=== PATIENT | male | born 1965 | race Caucasian/White ===

== ENCOUNTER 2017-05-14 17:04 | Emergency (ER) | payer OTHER ==
[~2017-05-14] VITALS: Ht 175.3 cm; Wt 66.0 kg
[~2017-05-14 17:04] MED LIST: ALBUAER2 INH; LSN5 PO; MCRK/10 PO; OXYC-88 PO; PRAV20TA PO; WARF1TAB6 PO; ZNTT/150 PO
[2017-05-14 17:06] VITALS: TEMP 36.4; Ht 175.3 cm; Wt 66.0 kg
[2017-05-14] MEDS ORDERED: KETOROLAC TROMETHAMINE 60 MG/2 ML VIAL IM STA (17:23)
[2017-05-14] MEDS ORDERED: DEXAMETHASONE SOD INJ 10 MG/ML VIAL IM ONE (17:30)
--- NOTE | 2017-05-14 19:00 | DIAGNOSTIC IMAGING REPORT ---
LUMBAR SPINE 5 VIEWS HISTORY: low back pain COMPARISON: Lumbar spine MRI 09/26/2015. FINDINGS: There is no fracture. No subluxation. Prior right-sided L5 hemilaminectomy. Mild facet degenerative changes within the lower lumbar spine. Small endplate osteophytes throughout the lumbar spine. Mild disc space narrowing at L1-L2, unchanged. The remaining disc spaces are preserved. IMPRESSION: No fracture or subluxation within the lumbar spine. No change in the mild degenerative changes as described above. Electronically signed by: Bashir Combs M.D. 05/14/2017 6:59 PM Dictated Date/Time: 05/14/2017 6:51 PM
[2017-05-14 19:03] VITALS: BP 120/86; PULSE 73; O2SAT 96
[2017-05-14] MEDS ORDERED: PRED50TA PO (19:14)
[2017-05-14] MEDS ORDERED: CYCL10TA6 PO (19:14)
[2017-05-14] MEDS ORDERED: FLEXERIL HOME PACK 10 MG VIAL PO ONE (19:15)
--- NOTE | 2017-05-14 19:40 | EMERGENCY ROOM VISIT NOTE ---
History First contact with patient: 17:14 Chief Complaint: BACK PAIN Stated Complaint: SEVERE BACK AND LEFT LEG PAIN History of Present Illness The patient is a 51 year old male who presents to the Emergency Room with complaints of left sided low back pain with radiation down his left leg. The patient has a long-standing history of back pain with previous surgery several years ago. He has been having nagging back pain for the past few days and did follow with his primary care physician. The patient was given a prescription of tramadol and MRI was ordered as an outpatient. The patient lives in [facility] and was scheduled to have the MRI today. He states that his pain was so bad that he did not wish to have the MRI, as he would have to lay flat, and instead presents to this department for evaluation. The patient did have a near fall 2 days ago, and states that he twisted, and this exacerbated his symptoms. He does not have numbness or paresthesias. He is not having loss of bowel or bladder control. No fever. He rates his discomfort a 9/10 that worsens with certain ocean. Review of Systems More than 10 systems were reviewed and otherwise negative with the exception of history of present illness. Past Medical/Surgical History Medical Problems: (1) Lumbar radiculopathy, right Family History No pertinent family history Social History Smoking Status: Current Every Day Smoker Alcohol Use: none Drug Use: none Marital Status: single Occupation Status: unemployed Current/Historical Medications Scheduled Cyclobenzaprine Hcl (Flexeril), 10 MG PO TID Hydrochlorothiazide (Hctz), 25 MG PO QAM Lisinopril (Lisinopril), 5 MG PO QAM Potassium Chloride (K-Tabs), 10 MEQ PO QAM Pravastatin (Pravachol ), 20 MG PO HS Prednisone (Prednisone), 50 MG PO DAILY Ranitidine (Zantac), 150 MG PO BID Warfarin Sod (Jantoven), 4 MG PO DAILY Physical Exam Vital Signs Date Time Temp Pulse Resp B/P (MAP) Pulse Ox O2 Delivery O2 Flow Rate FiO2 05/14/17 19:03 73 18 120/86 96 Room Air 05/14/17 17:06 36.4 96 20 123/86 98 Room Air Pain Rating (0-10): 7.0 Physical Exam VITALS: Vitals are noted on the nurse's note and reviewed by myself. Vital signs stable. GENERAL: Well-developed, well-nourished, white male, who is in no acute distress and resting comfortably. Patient is cooperative with the examination. HEART: Regular rate and rhythm without murmurs gallops or rubs. LUNGS: Clear to auscultation bilaterally without wheezes, rales or rhonchi. No retractions or accessory muscle use. ABDOMEN: Positive normal bowel sounds x 4. Soft, nontender, without masses or organomegaly. No guarding or rebound tenderness. MUSCULOSKELETAL: Mild left-sided low back tenderness on palpation primarily over the left SI joint. No significant step-off or paravertebral spasm/ swelling. No evidence of infection. Negative straight leg raise bilateral. No saddle paresthesias. NEURO: Patient was alert and oriented to person place and time. CN II through XII grossly intact. Deep tendon reflexes 2+ throughout. Medical Decision & Procedures ER Provider Diagnostic Interpretation: LUMBAR SPINE 5 VIEWS HISTORY: low back pain COMPARISON: Lumbar spine MRI 09/26/2015. FINDINGS: There is no fracture. No subluxation. Prior right-sided L5 hemilaminectomy. Mild facet degenerative changes within the lower lumbar spine. Small endplate osteophytes throughout the lumbar spine. Mild disc space narrowing at L1-L2, unchanged. The remaining disc spaces are preserved. IMPRESSION: No fracture or subluxation within the lumbar spine. No change in the mild degenerative changes as described above. Medications Administered Medications (Trade) Dose Ordered Sig/Kenneth Route Start Time Stop Time Status Last Admin Dose Admin Ketorolac Tromethamine (Toradol Inj) 60 mg NOW STAT IM 05/14/17 17:23 05/14/17 17:25 DC 05/14/17 18:25 60 MG Dexamethasone Sodium Phosphate (Decadron Inj) 10 mg NOW ONCE IM 05/14/17 17:30 05/14/17 17:31 DC 05/14/17 18:25 10 MG Cyclobenzaprine HCl (FLEXERIL 10MG Home Pack) 1 homepack UD ONCE PO 05/14/17 19:15 05/14/17 19:16 DC 05/14/17 19:23 1 HOMEPACK ED Course Physical exam and history were performed. Nursing notes, EMR, and Medication List were personally reviewed. Patient appears to have acute on chronic low back pain. He was scheduled for outpatient MRI today in the [facility], but elected to come to this facility for care and management because of his pain. The patient does not have neurologic deficit on exam and does not appear with signs of infection. He was given 60 mg IM Toradol and 10 mg IM Decadron. X-rays were performed and do not show acute findings. Overall the patient appears well for discharge home. I will give him a short course of Flexeril and prednisone for his symptoms. He evidently has been taking tramadol at home, and may continue this. He was asked to get his MRI as instructed and follow up with his primary care physician. He was otherwise invited back to the ER with any new, worsening , or concerning symptoms. The chart was completed utilizing [employer] Speech Voice Recognition Software. Grammatical errors, random word insertions, pronoun errors, and incomplete sentences are an occasional consequence of this system due to software limitations, ambient noise, and hardware issues. Any formal questions or concerns about the content, text, or information contained within the body of this dictation should be directly addressed to the provider for clarification. . Medical Decision Differential diagnosis: Etiologies such as musculoskeletal, disc herniation, fracture, aortic disease, metastatic disease, cord compression, discitis, infection, renal colic, gastrointestinal, acute exacerbation of chronic back pain, sciatica, cauda equina, as well as others were entertained. [place] Drug Monitoring Program Search Results: patient reviewed within database, see additional documentation Medication Reconcilliation Current Medication List: was personally reviewed by me Blood Pressure Screening Patient's blood pressure: Normal blood pressure Impression Primary Impression: Low back pain with sciatica Departure Information Dispostion Home / Self-Care Condition GOOD Prescriptions Prednisone (Prednisone) 50 Mg Tab 50 MG PO DAILY for 4 Days, #4 TAB Prov: Servando Echeverria PA-C 05/14/17 Cyclobenzaprine Hcl (FLEXERIL) 10 Mg Tab 10 MG PO TID for 5 Days, #15 TAB Prov: Servando Echeverria PA-C 05/14/17 Forms HOME CARE DOCUMENTATION FORM, IMPORTANT VISIT INFORMATION Patient Instructions My [facility] Additional Instructions You were seen and evaluated today on an emergency basis only. This is not a substitute for, or an effort to provide, complete comprehensive medical care. It is not possible to recognize and treat all injuries or illnesses in a single emergency department visit. For this reason it is recommended that you followup with your primary care physician for ongoing care and evaluation. For baseline pain relief you may alternate ibuprofen and acetaminophen every 4 hours for pain control. Take 600 mg ibuprofen (Advil) and then 4 hours later take 1000 mg acetaminophen (Tylenol). Do not take more than 3000 mg acetaminophen in a single day. Flexeril 1 tablet up to 3 times a day as needed for muscle spasms. No driving, working, or alcohol use with Flexeril. Take prednisone as prescribed You are welcome to return to the emergency department anytime with new, worsening, or concerning symptoms. Problem Qualifiers Primary Impression: Low back pain with sciatica Chronicity: acute Back pain laterality: left Sciatica laterality: sciatica of left side Qualified Codes: M54.42 - Lumbago with sciatica, left side
[2017-05-14] MEDS ORDERED: WARF4TAB8 PO (23:59)
[2017-05-14] MEDS ORDERED: HYDR25TA4 PO (23:59)
== END 2017-05-14 19:24 | disposition home or self-care (01) ==
LOC: C.EDB 17:05 → C.EDC 19:24
DX: M54.42 Lumbago with sciatica, left side (principal); F17.210 Nicotine dependence, cigarettes, uncomplicated; Z79.01 Long term (current) use of anticoagulants; Z79.899 Other long term (current) drug therapy; G89.29 Other chronic pain